=== PATIENT | female | born 1990 | race African-American/Black ===

== ENCOUNTER 2018-06-09 20:09 | Emergency (ER) | payer OTHER ==
--- NOTE | 2018-06-09 22:07 | RAD REPORT ---
EXAM DESCRIPTION: US - Extremity Venous Uni Ltd - 06/09/2018 9:04 pm CLINICAL HISTORY: Left leg pain and swelling, history of left leg DVT Preliminary findings provided at the time of the study. COMPARISON: November 2016 TECHNIQUE: Real-time sonographic evaluation of the right lower extremity deep venous systems was per formed. FINDINGS: Normal compressibility, flow augmentation, phasic flow and spontaneous flow are identified in the right lower extremity common femoral vein. Echogenic clot is present in the left femoral vein and popliteal vein. There is partial compression. Some blood flow is demonstrated in the veins. IMPRESSION: No acute DVT confirmed. 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
--- NOTE | 2018-06-09 22:10 | ER ---
Nurse's Notes [facility] Name: Grupo Smart Age: 27 yrs Sex: Female : 1990 Arrival Date: 06/09/2018 Time: 20:15 Bed 16 Private MD: Diagnosis: Pain in left leg Presentation: 06/09 20:22 Presenting complaint: Patient states: left leg, left knee pain and swelling X1 week. pt ak1 stated hx DVT in left leg. Transition of care: patient was not received from another setting of care. Onset of symptoms is unknown. Risk Assessment: Do you want to hurt yourself or someone else? Patient reports no desire to harm self or others. Initial Sepsis Screen: Does the patient meet any 2 criteria? No. Patient's initial sepsis screen is negative. Does the patient have a suspected source of infection? No. Patient's initial sepsis screen is negative. Care prior to arrival: None. 20:22 Method Of Arrival: Ambulatory ak1 20:22 Acuity: JOSE 3 ak1 Triage Assessment: 20:23 General: Appears in no apparent distress. Behavior is calm, cooperative. 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 - Social history:: Smoking status: Patient/guardian denies using tobacco. - Ebola Screening: : No symptoms or risks identified at this time. Screenin:30 Abuse screen: Denies threats or abuse. Denies injuries from another. Nutritional cc3 screening: No deficits noted. Tuberculosis screening: No symptoms or risk factors identified. Fall Risk Ambulatory Aid- None/Bed Rest/Nurse Assist (0 pts). Gait- Normal/Bed Rest/Wheelchair (0 pts) Mental Status- Oriented to own ability (0 pts). Assessment: 20:30 Reassessment: Patient appears in no apparent distress at this time. Patient and/or cc3 family updated on plan of care and expected duration. Pain level reassessed. Patient is alert, oriented x 3, equal unlabored respirations, skin warm/dry/pink. Pain: Complains of pain in left lower leg Quality of pain is described as aching. 21:20 Reassessment: Patient appears in no apparent distress at this time. Patient and/or cc3 family updated on plan of care and expected duration. Pain level reassessed. Patient is alert, oriented x 3, equal unlabored respirations, skin warm/dry/pink. Patient came back from ultrasound department. 22:30 Reassessment: Patient appears in no apparent distress at this time. Patient and/or cc3 family updated on plan of care and expected duration. Pain level reassessed. Patient is alert, oriented x 3, equal unlabored respirations, skin warm/dry/pink. Patient refused for urine sample collection, REHABILITATOR Loren aware and discharged home the patient, no prescription was given. No IV cannula in situ. Patient left ER vitally stable and ambulatory with her family. Vital Signs: 20:23 BP 129 / 82; Pulse 67; Resp 18; Temp 97.9; Pulse Ox 99% on R/A; Weight 72.57 kg (R); ak1 Height 5 ft. 8 in. (172.72 cm) (R); Pain 6/10; 21:20 BP 126 / 88; Pulse 62; Resp 19 S; Pulse Ox 99% on R/A; cc3 22:10 BP 124 / 73; Pulse 64; Resp 17 S; Pulse Ox 99% on R/A; cc3 20:23 Body Mass Index 24.33 (72.57 kg, 172.72 cm) ak1 ED Course: 20:15 Patient arrived in ED. as 20:22 Triage completed. ak1 20:23 Arm band placed on Patient placed in an exam room, Patient notified of wait time. ak1 20:25 Loren Talley FNP-C is PHCP. snw 20:25 Duncan Hull MD is Attending Physician. snw 20:30 Patient has correct armband on for positive identification. Bed in low position. Call cc3 light in reach. Side rails up X 1. Pulse ox on. NIBP on. 20:32 Patient taken to ultrasound. yayo 21:04 US Extremity Venous Unilateral Ltd In Process Unspecified. EDMS 21:07 Macie Chacon is Primary Nurse. cc3 21:44 Patient moved back from ultrasound. yayo 22:04 Patient moved back from ultrasound. yayo 22:30 No provider procedures requiring assistance completed. Patient did not have IV access cc3 during this emergency room visit. Administered Medications: 22:26 Drug: Chester 5 mg-325 mg 1 tabs Route: PO; jb4 22:30 Follow up: Response: No adverse reaction; Pain is decreased cc3 Outcome: 22:10 Discharge ordered by . andres 22:30 Discharged to home ambulatory, with family. cc3 22:30 Condition: stable 22:30 Discharge instructions given to patient, family, Instructed on discharge instructions, follow up and referral plans. Demonstrated understanding of instructions, follow-up care. 22:36 Patient left the ED. jb4 Signatures: Dispatcher [employer] EDMS Loren Talley, ABALONE FISHERMAN-C ABALONE FISHERMAN-Skye Lind Amber, RN RN enmanuel1 Giovanny Huang jd, James, RN RN jb4 Macie Chacon cc3
--- NOTE | 2018-06-09 22:11 | EDPHYS ---
Physician Documentation [facility] Name: Grupo Smart Age: 27 yrs Sex: Female : 1990 Arrival Date: 06/09/2018 Time: 20:15 Bed 16 Private MD: ED Physician Duncan Hull HPI: 06/09 23:05 This 27 yrs old Black Female presents to ER via Ambulatory with complaints of Leg Pain. snw 23:05 The patient presents with pain, swelling. The complaints affect the . Context: The snw problem was sustained at home, resulted from an unknown cause, the patient can fully bear weight, the patient is able to ambulate, previous DVT. Onset: The symptoms/episode began/occurred gradually, 1 week(s) ago, and became worse today, and became persistent. Modifying factors: The symptoms are alleviated by elevating leg, the symptoms are aggravated by nothing. Treatment prior to arrival includes: no previous treatment. Severity of symptoms: At their worst the symptoms were moderate, severe. The patient has experienced a previous episode. The patient has not recently seen a physician. Pt agreed to US but states she is not and refuses UPT, request discharge papers.. 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 - Social history:: Smoking status: Patient/guardian denies using tobacco. - Ebola Screening: : No symptoms or risks identified at this time. ROS: 23:05 Constitutional: Negative for fever, chills, and weight loss, Eyes: Negative for injury, snw pain, redness, and discharge, ENT: Negative for injury, pain, and discharge, Neck: Negative for injury, pain, and swelling, Cardiovascular: Negative for chest pain, palpitations, and edema, Respiratory: Negative for shortness of breath, cough, wheezing, and pleuritic chest pain, Abdomen/GI: Negative for abdominal pain, nausea, vomiting, diarrhea, and constipation, Back: Negative for injury and pain, : Negative for injury, bleeding, discharge, and swelling, Skin: Negative for injury, rash, and discoloration, Neuro: Negative for headache, weakness, numbness, tingling, and seizure. 23:05 MS/extremity: Positive for swelling, tenderness, of the lateral aspect of left calf, left calf, medial aspect of left calf and left rodrigez. Exam: 23:05 Constitutional: This is a well developed, well nourished patient who is awake, alert, snw and in no acute distress. Head/Face: Normocephalic, atraumatic. Eyes: Pupils equal round and reactive to light, extra-ocular motions intact. Lids and lashes normal. Conjunctiva and sclera are non-icteric and not injected. Cornea within normal limits. Periorbital areas with no swelling, redness, or edema. ENT: Nares patent. No nasal discharge, no septal abnormalities noted. Tympanic membranes are normal and external auditory canals are clear. Oropharynx with no redness, swelling, or masses, exudates, or evidence of obstruction, uvula midline. Mucous membranes moist. Neck: Trachea midline, no thyromegaly or masses palpated, and no cervical lymphadenopathy. Supple, full range of motion without nuchal rigidity, or vertebral point tenderness. No Meningismus. Chest/axilla: Normal chest wall appearance and motion. Nontender with no deformity. No lesions are appreciated. Cardiovascular: Regular rate and rhythm with a normal S1 and S2. No gallops, murmurs, or rubs. Normal PMI, no JVD. No pulse deficits. Respiratory: Lungs have equal breath sounds bilaterally, clear to auscultation and percussion. No rales, rhonchi or wheezes noted. No increased work of breathing, no retractions or nasal flaring. Abdomen/GI: Soft, non-tender, with normal bowel sounds. No distension or tympany. No guarding or rebound. No evidence of tenderness throughout. Back: No spinal tenderness. No costovertebral tenderness. Full range of motion. Skin: Warm, dry with normal turgor. Normal color with no rashes, no lesions, and no evidence of cellulitis. Neuro: Awake and alert, GCS 15, oriented to person, place, time, and situation. Cranial nerves II-XII grossly intact. Motor strength 5/5 in all extremities. Sensory grossly intact. Cerebellar exam normal. Normal gait. Psych: Awake, alert, with orientation to person, place and time. Behavior, mood, and affect are within normal limits. 23:05 Musculoskeletal/extremity: Extremities: grossly normal except: noted in the left leg: swelling, tenderness, ROM: no acute changes, Circulation is intact in all extremities. Sensation intact. pt dx with DVT post delivery of child, took anticoagulants x 6 months. Pt states left lower leg has been swollen x 1 week. Vital Signs: 20:23 BP 129 / 82; Pulse 67; Resp 18; Temp 97.9; Pulse Ox 99% on R/A; Weight 72.57 kg (R); ak1 Height 5 ft. 8 in. (172.72 cm) (R); Pain 6/10; 21:20 BP 126 / 88; Pulse 62; Resp 19 S; Pulse Ox 99% on R/A; cc3 22:10 BP 124 / 73; Pulse 64; Resp 17 S; Pulse Ox 99% on R/A; cc3 20:23 Body Mass Index 24.33 (72.57 kg, 172.72 cm) ak1 MDM: 20:29 Patient medically screened. snw 22:28 Refusal of service: The patient/guardian displays adequate decision making capability snw and despite a detailed discussion of alternatives, benefits, risks, and consequences refuses: all lab tests, Medications, further evaluation. 23:09 Data reviewed: vital signs, nurses notes. Data interpreted: Pulse oximetry: on room air snw is 99 %. Interpretation: normal. Counseling: I had a detailed discussion with the patient and/or guardian regarding: the historical points, exam findings, and any diagnostic results supporting the discharge/admit diagnosis, the presence of at least one elevated blood pressure reading (>120/80) during this emergency department visit, radiology results, to return to the emergency department if symptoms worsen or persist or if there are any questions or concerns that arise at home. Special discussion: I have referred the patient to see his PCP for further evaluation of high blood pressure. Based on the history and exam findings, there is no indication for further emergent testing or inpatient evaluation. I discussed with the patient/guardian the need to see the primary care provider for further evaluation of the symptoms. 06/09 20:26 Order name: US Extremity Venous Unilateral Ltd; Complete Time: 22:08 snw Administered Medications: 22:26 Drug: Montchanin 5 mg-325 mg 1 tabs Route: PO; jb4 22:30 Follow up: Response: No adverse reaction; Pain is decreased cc3 Disposition: 06/09/18 22:10 Discharged to Home. Impression: Pain in left leg. - Condition is Stable. - Discharge Instructions: Leg Cramps, Musculoskeletal Pain, Heat Therapy. - Work release form, Medication Reconciliation Form, Thank You Letter, Antibiotic Education, Prescription Opioid Use form. - Follow up: Private Physician; When: 2 - 3 days; Reason: Recheck today's complaints, Continuance of care, Re-evaluation by your physician. Follow up: Emergency Department; When: As needed; Reason: Worsening of condition. - Notes: Take one baby aspirin (81mg) daily. Addendum: 06/16/2018 11:49 Co-signature as Attending Physician, Duncan Hull MD. g s Signatures: Dispatcher [employer] EDMS Loren Talley, SALES AND MARKETING INTERN-C SALES AND MARKETING INTERN-Csnw Mellissa Peña RN RN ak1 Umair Tristan RN RN jb4 Duncan Hull MD MD gs Cordel, Charlene cc3 Corrections: (The following items were deleted from the chart) 06/09 22:29 22:25 Urine Test ordered. [facility] cc3 22:29 22:25 Urine Dipstick-Ancillary ordered. [facility] cc3 22:36 22:10 06/09/2018 22:10 Discharged to Home. Impression: Pain in left leg. Condition is jb4 Stable. Forms are Medication Reconciliation Form, Thank You Letter, Antibiotic Education, Prescription Opioid Use. Follow up: Private Physician; When: 2 - 3 days; Reason: Recheck today's complaints, Continuance of care, Re-evaluation by your physician. Follow up: Emergency Department; When: As needed; Reason: Worsening of condition. sn
[2018-06-09] MEDS ORDERED: HYDROCODONE/APAP 5/325 MG TAB ONE (22:28)
[2018-06-09 22:59] VITALS: TEMP 97.9; O2SAT 99
[2018-06-09 23:01] VITALS: BP 126/88
== END 2018-06-09 22:36 | disposition home or self-care (01) ==
LOC: ER 20:09
DX: M79.605 Pain in left leg (principal)
CPT/HCPCS: 93971; 99284